=== PATIENT | female | born 1980 | race Caucasian/White ===

== ENCOUNTER → 2017-03-07 | Outpatient (CLI) | payer BC | LOC: KOH-I 11:11 | DX: R07.89 Other chest pain (principal) | CPT/HCPCS: 71020 ==

== ENCOUNTER → 2017-04-26 | Outpatient (CLI) | payer BC | LOC: LAB 16:00 | DX: R07.9 Chest pain, unspecified (principal); R06.00 Dyspnea, unspecified | CPT/HCPCS: 36415; 84439; 84443; 86141 ==

== ENCOUNTER 2022-02-09 06:36 | Day surgery (SDC) | payer BC ==
[~2022-02-09] VITALS: Ht 157.5 cm; Wt 97.5 kg
[2022-02-09 07:23] LABS: RED BLOOD COUNT 4.82 M/UL (4.00-5.10); WHITE BLOOD COUNT 6.9 K/UL (4.5-11.0)
[2022-02-09] MEDS ORDERED: NAPROSYN500 MG PO (13:39)
[2022-02-09] MEDS ORDERED: HYDROCODON-ACE1 EAC2 PO (13:39)
--- NOTE | 2022-02-09 18:07 | NUR ---
MULTIPLE ATTEMPTS MADE AT THIS TIME TO SCAN MEDICATIONS INTO PHARMACY AT THIS TIME AND THEY STATE THAT THEY DO NOT HAVE THE COPY. PAPER COPY SENT PER THIER REQUEST. STILL AWAITING ORDERS TO BE PUT IN AT THIS TIME.
[2022-02-10 09:23] LABS: HEMOGLOBIN 12.4 gm/dl (12.3-15.3); RED BLOOD COUNT 4.35 M/UL (4.00-5.10); WHITE BLOOD COUNT 8.3 K/UL (4.5-11.0)
== END 2022-02-10 13:00 | disposition home or self-care (01) ==
LOC: OR 06:36 → M/S 14:58 → OR 02-10 13:00
PROVIDERS: Obstetrics & Gynecology
DX: D25.1 Intramural leiomyoma of uterus (principal); N72 Inflammatory disease of cervix uteri; N80.0 Endometriosis of uterus; N92.0 Excessive and frequent menstruation with regular cycle; K21.9 Gastro-esophageal reflux disease without esophagitis; G43.909 Migraine, unspecified, not intractable, without status migrainosus; E78.00 Pure hypercholesterolemia, unspecified; Z20.822 Contact with and (suspected) exposure to COVID-19
CPT/HCPCS: 36415; 81001; 84703; 85025; C1769; J0690; J1100; J1170; J1885; J2001; J2250; J2270; J2405; J2704; J2710; J3010; J7120